=== PATIENT | male | born 1965 | race Two or more races ===

== ENCOUNTER 2020-12-13 06:25 | Outpatient (CLI) | payer OTHER | END 2020-12-13 06:35 | disposition home or self-care (01) | LOC: LAB 06:25 | DX: I10 Essential (primary) hypertension (principal); E03.8 Other specified hypothyroidism ==

== ENCOUNTER → 2020-12-29 06:57 | Outpatient (CLI) | payer OTHER | END | disposition home or self-care (01) | LOC: LAB 06:57 | PROVIDERS: ATTEND Specialist | DX: E53.8 Deficiency of other specified B group vitamins (principal); E55.9 Vitamin D deficiency, unspecified ==

== ENCOUNTER → 2021-05-05 06:58 | Outpatient (CLI) | payer OTHER | END | disposition home or self-care (01) | LOC: LAB 06:58 | PROVIDERS: ATTEND Family Medicine | DX: E03.8 Other specified hypothyroidism (principal); I11.9 Hypertensive heart disease without heart failure; M46.42 Discitis, unspecified, cervical region; Z98.84 Bariatric surgery status; Z13.1 Encounter for screening for diabetes mellitus; Z13.220 Encounter for screening for lipoid disorders; Z12.11 Encounter for screening for malignant neoplasm of colon; Z12.5 Encounter for screening for malignant neoplasm of prostate; R19.00 Intra-abdominal and pelvic swelling, mass and lump, unspecified site ==

== ENCOUNTER 2021-05-05 07:38 | Outpatient (CLI) | payer OTHER | END 2021-05-05 07:56 | disposition home or self-care (01) | LOC: MRI 07:38 | PROVIDERS: ATTEND Family Medicine | DX: E03.8 Other specified hypothyroidism (principal); I11.9 Hypertensive heart disease without heart failure; M46.42 Discitis, unspecified, cervical region; Z98.84 Bariatric surgery status; R19.00 Intra-abdominal and pelvic swelling, mass and lump, unspecified site; I69.30 Unspecified sequelae of cerebral infarction; R55 Syncope and collapse; Z13.1 Encounter for screening for diabetes mellitus; Z13.220 Encounter for screening for lipoid disorders; Z12.5 Encounter for screening for malignant neoplasm of prostate; Z12.11 Encounter for screening for malignant neoplasm of colon | CPT/HCPCS: 70551 ==

== ENCOUNTER 2021-05-20 07:25 | Emergency (ER) | payer OTHER ==
[~2021-05-20] VITALS: Ht 175.3 cm; Wt 74.4 kg
[2021-05-20] MEDS ORDERED: PLAVIX75 MG (07:37)
[2021-05-20] MEDS ORDERED: SYNTHROID88 MCG (07:37)
[2021-05-20] MEDS ORDERED: COZAAR50 MG (07:37)
[2021-05-20] MEDS ORDERED: CLARITIN10 M1 PO (09:24)
[2021-05-20] MEDS ORDERED: CLOTRIMAZOLE-BE15 GM TOP (09:24)
== END 2021-05-20 09:52 | disposition home or self-care (01) ==
LOC: ER 07:25
DX: R21 Rash and other nonspecific skin eruption (principal); E03.9 Hypothyroidism, unspecified; I10 Essential (primary) hypertension

== ENCOUNTER 2021-07-21 08:21 | Outpatient (CLI) | payer OTHER ==
[~2021-07-21 08:21] MED LIST: CLARITIN10 M1 PO; CLOTRIMAZOLE-BE15 GM TOP; COZAAR50 MG; PLAVIX75 MG; SYNTHROID88 MCG
== END 2021-07-21 08:32 | disposition home or self-care (01) ==
LOC: TOM 08:21
PROVIDERS: ATTEND Family Medicine
DX: R59.0 Localized enlarged lymph nodes (principal); Z98.84 Bariatric surgery status

== ENCOUNTER 2021-09-11 07:00 | Outpatient (CLI) | payer OTHER | END 2021-09-11 07:11 | disposition home or self-care (01) | LOC: LAB 07:00 | PROVIDERS: ATTEND Family Medicine | DX: I11.9 Hypertensive heart disease without heart failure (principal); M46.42 Discitis, unspecified, cervical region; R59.0 Localized enlarged lymph nodes; Z88.4 Allergy status to anesthetic agent; I69.30 Unspecified sequelae of cerebral infarction; E03.9 Hypothyroidism, unspecified; R55 Syncope and collapse; Z13.1 Encounter for screening for diabetes mellitus; Z13.220 Encounter for screening for lipoid disorders; Z12.5 Encounter for screening for malignant neoplasm of prostate; Z12.11 Encounter for screening for malignant neoplasm of colon; R19.00 Intra-abdominal and pelvic swelling, mass and lump, unspecified site ==

== ENCOUNTER 2021-09-12 11:30 | Outpatient (CLI) | payer OTHER | END 2021-09-12 11:32 | disposition home or self-care (01) | LOC: LAB 11:30 | PROVIDERS: ATTEND Family Medicine | DX: I11.9 Hypertensive heart disease without heart failure (principal); M46.42 Discitis, unspecified, cervical region; R59.0 Localized enlarged lymph nodes; I69.30 Unspecified sequelae of cerebral infarction; E03.9 Hypothyroidism, unspecified; R55 Syncope and collapse; Z13.1 Encounter for screening for diabetes mellitus; Z13.220 Encounter for screening for lipoid disorders; Z12.5 Encounter for screening for malignant neoplasm of prostate; Z12.11 Encounter for screening for malignant neoplasm of colon; R19.00 Intra-abdominal and pelvic swelling, mass and lump, unspecified site; Z98.84 Bariatric surgery status ==

== ENCOUNTER 2022-02-05 06:30 | Outpatient (CLI) | payer OTHER | END 2022-02-05 06:39 | disposition home or self-care (01) | LOC: LAB 06:30 | PROVIDERS: ATTEND Family Medicine | DX: I11.9 Hypertensive heart disease without heart failure (principal); M46.42 Discitis, unspecified, cervical region; R59.0 Localized enlarged lymph nodes; I69.30 Unspecified sequelae of cerebral infarction; E03.9 Hypothyroidism, unspecified; R55 Syncope and collapse; R19.00 Intra-abdominal and pelvic swelling, mass and lump, unspecified site; Z98.84 Bariatric surgery status; Z13.1 Encounter for screening for diabetes mellitus; Z13.220 Encounter for screening for lipoid disorders; Z12.5 Encounter for screening for malignant neoplasm of prostate; Z12.11 Encounter for screening for malignant neoplasm of colon ==

== ENCOUNTER 2022-06-06 10:13 | Outpatient (CLI) | payer OTHER | END 2022-06-06 10:23 | disposition home or self-care (01) | LOC: LAB 10:13 | PROVIDERS: ATTEND Family Medicine | DX: I11.9 Hypertensive heart disease without heart failure (principal); M46.42 Discitis, unspecified, cervical region; R59.0 Localized enlarged lymph nodes; R74.8 Abnormal levels of other serum enzymes; Z98.84 Bariatric surgery status; I69.30 Unspecified sequelae of cerebral infarction; E03.9 Hypothyroidism, unspecified; R55 Syncope and collapse; Z13.1 Encounter for screening for diabetes mellitus; Z13.220 Encounter for screening for lipoid disorders; Z12.5 Encounter for screening for malignant neoplasm of prostate; Z12.11 Encounter for screening for malignant neoplasm of colon; R19.00 Intra-abdominal and pelvic swelling, mass and lump, unspecified site ==

== ENCOUNTER 2022-06-06 10:56 | Outpatient (CLI) | payer OTHER | END 2022-06-06 10:59 | disposition home or self-care (01) | LOC: SONOGRAMA 10:56 | PROVIDERS: ATTEND Family Medicine | DX: R19.00 Intra-abdominal and pelvic swelling, mass and lump, unspecified site (principal); Z98.84 Bariatric surgery status ==

== ENCOUNTER 2022-09-21 06:06 | Outpatient (CLI) | payer OTHER ==
[2022-09-21] MEDS ORDERED: ZOLPIDEM TART1.75 MG (07:37)
[2022-09-21] MEDS ORDERED: XANAX0.25 MG PO (07:38)
[2022-09-21] MEDS ORDERED: SEROQUEL25 MG PO (07:38)
== END 2022-09-21 06:07 | disposition home or self-care (01) ==
LOC: LAB 06:06
PROVIDERS: ATTEND Family Medicine
DX: I11.9 Hypertensive heart disease without heart failure (principal); M46.42 Discitis, unspecified, cervical region; R59.0 Localized enlarged lymph nodes; R74.8 Abnormal levels of other serum enzymes; Z98.84 Bariatric surgery status; I69.30 Unspecified sequelae of cerebral infarction; E03.9 Hypothyroidism, unspecified; R55 Syncope and collapse; Z13.1 Encounter for screening for diabetes mellitus; Z13.220 Encounter for screening for lipoid disorders; Z12.5 Encounter for screening for malignant neoplasm of prostate; Z12.11 Encounter for screening for malignant neoplasm of colon; R19.00 Intra-abdominal and pelvic swelling, mass and lump, unspecified site

== ENCOUNTER 2022-09-21 07:33 | Emergency (ER) | payer OTHER ==
[~2022-09-21] VITALS: Ht 175.3 cm; Wt 76.2 kg
[2022-09-21] MEDS ORDERED: ZOLPIDEM TART1.75 MG (07:37)
[2022-09-21] MEDS ORDERED: XANAX0.25 MG PO (07:38)
[2022-09-21] MEDS ORDERED: SEROQUEL25 MG PO (07:38)
== END 2022-09-21 10:49 | disposition home or self-care (01) ==
LOC: ER 07:33
DX: R30.0 Dysuria (principal); Z88.6 Allergy status to analgesic agent; Z88.2 Allergy status to sulfonamides

== ENCOUNTER 2022-10-27 08:44 | Outpatient (CLI) | payer OTHER ==
[~2022-10-27 08:44] MED LIST changes: +SEROQUEL25 MG PO; +XANAX0.25 MG PO; +ZOLPIDEM TART1.75 MG
== END 2022-10-27 08:51 | disposition home or self-care (01) ==
LOC: LAB 08:44
PROVIDERS: ATTEND Urology
DX: N40.1 Benign prostatic hyperplasia with lower urinary tract symptoms (principal); R30.0 Dysuria

== ENCOUNTER 2022-10-29 07:35 | Outpatient (CLI) | payer OTHER | END 2022-10-29 07:51 | disposition home or self-care (01) | LOC: SONOGRAMA 07:35 | PROVIDERS: ATTEND Urology | DX: R10.2 Pelvic and perineal pain (principal); R19.00 Intra-abdominal and pelvic swelling, mass and lump, unspecified site; I11.9 Hypertensive heart disease without heart failure; M46.42 Discitis, unspecified, cervical region; R59.0 Localized enlarged lymph nodes; R74.8 Abnormal levels of other serum enzymes; D64.9 Anemia, unspecified; Z98.84 Bariatric surgery status; I69.30 Unspecified sequelae of cerebral infarction; E03.9 Hypothyroidism, unspecified; R55 Syncope and collapse; Z13.1 Encounter for screening for diabetes mellitus; Z13.220 Encounter for screening for lipoid disorders; Z12.5 Encounter for screening for malignant neoplasm of prostate; Z12.11 Encounter for screening for malignant neoplasm of colon ==

== ENCOUNTER 2022-10-29 12:09 | Inpatient (IN) | payer OTHER ==
[~2022-10-29] VITALS: Ht 175.3 cm; Wt 77.1 kg
--- NOTE | 2022-10-29 12:54 | NUR ---
PACIENTE MASCULINO ALERTA Y ORIENTADO X3, REFIERE HABERSE REALIZADO EL JI DE HOY CT LO CUAL SALIO POSITIVO A APENDICITIS, SE LE NOTIFICA A DR. PRYOR.
--- NOTE | 2022-10-29 15:52 | NUR ---
.COLLINS EVALUA PACIENTE. SE EDUCA SOBRE [place] MEDICO EL CUAL REFIERE COMPRENDER. SE COLECTAN MUESTRAS DE LABORATORIO BAJO MEDIDAS ASEPTICAS. SE ADMINISTRAN MEDICAMENTOS YANCY ORDEN MEDICA. PTE MANEJADO POR .
== END 2022-11-02 09:29 | disposition home or self-care (01) | DRG 395 ==
LOC: ER 12:09 → MEDJ 17:57
PROVIDERS: ADMIT Internal Medicine; ATTEND Internal Medicine
PROC: BW21YZZ Computerized Tomography (CT Scan) of Abdomen and Pelvis using Other Contrast (ICD-10-PCS; principal; 2022-10-31)
DX: K35.80 Unspecified acute appendicitis (principal); E03.8 Other specified hypothyroidism; I10 Essential (primary) hypertension; N40.0 Benign prostatic hyperplasia without lower urinary tract symptoms

== ENCOUNTER 2022-11-05 11:26 | Inpatient (IN) | payer OTHER ==
[~2022-11-05] VITALS: Ht 175.3 cm; Wt 77.1 kg
--- NOTE | 2022-11-05 11:39 | NUR ---
PTE CON DOLOR PELVICO FUETE PTE CON ADMISION DIRECTA POR EL DR HALL
--- NOTE | 2022-11-05 13:42 | NUR ---
SE ORIENTA PTE SOBRE EL TRTAMIENTO ORDENADO POR EL DR VAZQUEZ PTE ALERTA Y ORIENTADO POR 3 SE REALIZAN MUESTRAS DE LABORATORIO PTE CON ORDENES DE ADMISION DIRECTA. SE EJECUTAN ORDENES DE MISBAH DE EMERGENCIA POR EL DR VAZQUEZ
== END 2022-11-07 13:45 | disposition home or self-care (01) | DRG 343 ==
LOC: ER 11:26 → SEC-K 13:10 → SURH 13:10
PROVIDERS: ADMIT Specialist; ATTEND Specialist
PROC: BW21YZZ Computerized Tomography (CT Scan) of Abdomen and Pelvis using Other Contrast (ICD-10-PCS; 2022-11-05)
PROC: 3E0F7SF Introduction of Other Gas into Respiratory Tract, Via Natural or Artificial Opening (ICD-10-PCS; 2022-11-06)
PROC: 0DTJ0ZZ Resection of Appendix, Open Approach (ICD-10-PCS; principal; 2022-11-06 11:30)
DX: K35.80 Unspecified acute appendicitis (principal); R10.31 Right lower quadrant pain; I10 Essential (primary) hypertension; E03.9 Hypothyroidism, unspecified; Z20.822 Contact with and (suspected) exposure to COVID-19

== ENCOUNTER → 2023-02-13 07:09 | Outpatient (CLI) | payer OTHER | END | disposition home or self-care (01) | LOC: LAB 07:09 | PROVIDERS: ATTEND Family Medicine | DX: I11.9 Hypertensive heart disease without heart failure (principal); M46.42 Discitis, unspecified, cervical region; R59.0 Localized enlarged lymph nodes; R74.8 Abnormal levels of other serum enzymes; D64.9 Anemia, unspecified; Z98.84 Bariatric surgery status; I69.30 Unspecified sequelae of cerebral infarction; E03.9 Hypothyroidism, unspecified; R55 Syncope and collapse; Z13.1 Encounter for screening for diabetes mellitus; Z13.220 Encounter for screening for lipoid disorders; Z12.5 Encounter for screening for malignant neoplasm of prostate; Z12.11 Encounter for screening for malignant neoplasm of colon; R19.00 Intra-abdominal and pelvic swelling, mass and lump, unspecified site ==

== ENCOUNTER 2023-05-29 06:47 | Outpatient (CLI) | payer OTHER ==
[2023-05-29 08:24] LABS: HEMATOCRIT 35.8 % (39.0-48.0); HEMOGLOBIN 12.5 g/dL (13-16.00); MEAN CELL VOLUME 90.2 fL (80.0-100.00); MEAN CORPUSCULAR HEMOGLOBIN 31.4 pg (27.00-32.0); MEAN CORPUSCULAR HGB CONC 34.8 g/dl (32.0-36.0); PLATELET COUNT 219 K/uL (150-450); RED BLOOD COUNT 3.97 M/uL (4.00-6.00); RED CELL DISTRIBUTION WIDTH 12.9 % (11.5-14.5); URINE APPEARANCE Cloudy; URINE BILIRRUBIN Negative (NEGATIVE); URINE BLOOD Negative; URINE COLOR Dark Yellow; URINE GLUCOSE Negative (NEGATIVE); URINE LEUKOCYTE Negative; URINE NITRATE Negative; URINE PROTEIN 30 (NEGATIVE)
[2023-05-29 08:27] LABS: URINE EPITHELIAL CELLS 3.8 uL (0.0-38.8); URINE RBC 23.7 uL (0.0-20.8); URINE WBC 2.1 uL (0.0-23.2)
[2023-05-29 09:28] LABS: URINE BACTERIA 3.7 uL (0.0-1933)
[2023-05-29 09:30] LABS: URINE CRYSTALS MODERATE /HPF
[2023-05-29 09:38] LABS: ALBUMIN 3.9 gm/dL (3.4-5.0); BILIRUBIN TOTAL 0.64 mg/dL (0.3-1.2); CHOL HDL RATIO 2.7 (0-5.0); CREATININE SERUM 1.18 mg/dL (0.70-1.30); GFR 63.4; GLOBULINA 3.1 G/DL (2.4-3.5); POTASSIUM 3.82 mEq/L (3.5-5.1); TSH 4.01 uIU/mL (0.358-3.74)
== END 2023-05-29 08:13 | disposition home or self-care (01) ==
LOC: LAB 06:47
PROVIDERS: ATTEND Family Medicine
DX: I11.9 Hypertensive heart disease without heart failure (principal); M46.42 Discitis, unspecified, cervical region; R59.0 Localized enlarged lymph nodes; R74.8 Abnormal levels of other serum enzymes; D64.9 Anemia, unspecified; Z98.84 Bariatric surgery status; I69.30 Unspecified sequelae of cerebral infarction; R55 Syncope and collapse; E03.9 Hypothyroidism, unspecified; Z13.1 Encounter for screening for diabetes mellitus; Z13.220 Encounter for screening for lipoid disorders; Z12.5 Encounter for screening for malignant neoplasm of prostate; Z12.11 Encounter for screening for malignant neoplasm of colon; R19.00 Intra-abdominal and pelvic swelling, mass and lump, unspecified site; E83.9 Disorder of mineral metabolism, unspecified; E53.8 Deficiency of other specified B group vitamins

== ENCOUNTER 2023-05-29 07:55 | Outpatient (CLI) | payer OTHER | END 2023-05-29 07:56 | disposition home or self-care (01) | LOC: RAD 07:55 | DX: M47.812 Spondylosis without myelopathy or radiculopathy, cervical region (principal) ==